=== PATIENT | male | born 1945 | race Caucasian/White ===

== ENCOUNTER → 2016-09-13 | Outpatient (CLI) | payer OTHER ==
[~2016-09-13] MED LIST: ASPIRIN E.C. 8181 MG PO; CELEBREX200 MG PO; CIALIS5 MG PO; EFFEXOR XR150 M1 PO; FLOMAX 0.40.4 MG/CAP PO; MIRAPEX0.5 MG PO; NOVAPLUS DE200 MG/ML IM; PRILOSEC 20MG20 MG PO
== END ==
LOC: RAD 08:19
DX: N20.0 Calculus of kidney (principal); Z00.00 Encounter for general adult medical examination without abnormal findings; N40.0 Benign prostatic hyperplasia without lower urinary tract symptoms; R10.9 Unspecified abdominal pain

== ENCOUNTER → 2016-09-14 | Outpatient (CLI) | payer OTHER | LOC: RAD 09:40 | DX: N20.0 Calculus of kidney (principal) ==

== ENCOUNTER → 2016-09-19 | Day surgery (SDC) | payer OTHER | LOC: MSO 07:20 | DX: Z12.11 Encounter for screening for malignant neoplasm of colon (principal); K62.1 Rectal polyp; K57.30 Diverticulosis of large intestine without perforation or abscess without bleeding; K64.4 Residual hemorrhoidal skin tags; Z86.010 Personal history of colon polyps; Z87.891 Personal history of nicotine dependence; G47.33 Obstructive sleep apnea (adult) (pediatric); K21.9 Gastro-esophageal reflux disease without esophagitis | CPT/HCPCS: 00810; J7120 ==

== ENCOUNTER → 2016-12-25 | Outpatient (CLI) | payer OTHER ==
[2015-06-09 15:25] VITALS: BP 137/85
== END ==
LOC: RAD 08:58
DX: R05 Cough (principal); J45.30 Mild persistent asthma, uncomplicated

== ENCOUNTER → 2017-07-25 | Outpatient (CLI) | payer OTHER, MEDICARE ==
[2015-06-09 15:25] VITALS: BP 137/85
== END ==
LOC: RAD 08:27
DX: M25.512 Pain in left shoulder (principal)

== ENCOUNTER → 2018-03-20 | Outpatient (CLI) | payer OTHER, MEDICARE ==
[2015-06-09 15:25] VITALS: BP 137/85
== END ==
LOC: LAB 07:51
DX: M31.6 Other giant cell arteritis (principal)

== ENCOUNTER → 2018-03-28 | Outpatient (CLI) | payer OTHER ==
[2015-06-09 15:25] VITALS: BP 137/85
== END ==
LOC: RAD 14:53
DX: I65.23 Occlusion and stenosis of bilateral carotid arteries (principal)

== ENCOUNTER → 2018-05-09 | Outpatient (CLI) | payer MEDICARE, BC ==
[2015-06-09 15:25] VITALS: BP 137/85
== END ==
LOC: RAD 12:11
DX: M19.071 Primary osteoarthritis, right ankle and foot (principal); M19.072 Primary osteoarthritis, left ankle and foot; M25.872 Other specified joint disorders, left ankle and foot

== ENCOUNTER → 2018-07-15 | Outpatient (CLI) | payer MEDICARE, BC ==
[2015-06-09 15:25] VITALS: BP 137/85
[2018-07-15 08:51] LABS: EOS # 0.3 (0.04-0.40); HEMOGLOBIN 13.9 g/dL (13.5-18.0); MEAN CELL VOLUME 94 fl (78-100); MEAN CORPUSCULAR HEMOGLOBIN 31 pg (27-31); MEAN CORPUSCULAR HGB CONC 33 g/dL (33-37); MEAN PLATELET VOLUME 8.4 fl (7.4-10.4); MONO # 0.3 (0.20-0.80); NEU # 2.7 (1.40-6.50); PLATELET COUNT 190 K/mm3 (130-400); RED BLOOD COUNT 4.48 M/mm3 (4.20-5.60)
[2018-07-15 09:16] LABS: EOS % 7.1 % (0.0-4.0); LYMPH# 0.6 (1.50-4.00)
[2018-07-15 09:17] LABS: ALBUMIN 4.1 g/dL (3.5-5.0); POTASSIUM 4.1 mmol/L (3.6-5.0); TOTAL BILIRUBIN 0.7 mg/dL (0.2-1.3); TOTAL PROTEIN 6.9 g/dL (6.3-8.2)
[2018-07-15 10:10] LABS: ERYTHROCYTE SEDIMENTATION RATE 8 mm/hr (0-20)
[2018-07-15 23:16] LABS: TESTOSTERONE 173 ng/dL (221-716)
== END ==
LOC: LAB 08:32
PROVIDERS: Internal Medicine
DX: Z12.5 Encounter for screening for malignant neoplasm of prostate (principal); Z12.11 Encounter for screening for malignant neoplasm of colon; I63.9 Cerebral infarction, unspecified; E29.1 Testicular hypofunction; J45.30 Mild persistent asthma, uncomplicated

== ENCOUNTER 2018-10-06 08:20 | Observation (INO) | payer MEDICARE, BC ==
[~2018-10-06] VITALS: Ht 188 cm; Wt 118.9 kg
[2018-10-06 09:18] LABS: HEMATOCRIT 47.9 % (42.0-52.0); HEMOGLOBIN 15.8 g/dL (13.5-18.0); MEAN CELL VOLUME 94 fl (78-100); MEAN CORPUSCULAR HEMOGLOBIN 31 pg (27-31); MEAN CORPUSCULAR HGB CONC 33 g/dL (33-37); MEAN PLATELET VOLUME 8.5 fl (7.4-10.4); PLATELET COUNT 191 K/mm3 (130-400); RED CELL DISTRIBUTION WIDTH 14.1 % (11.5-14.5); WHITE BLOOD COUNT 6.2 K/mm3 (4.8-10.8)
[2018-10-06 09:30] LABS: ALBUMIN 4.2 g/dL (3.5-5.0); CALCIUM 8.6 mg/dL (8.4-10.2); POTASSIUM 4.1 mmol/L (3.6-5.0); TOTAL BILIRUBIN 0.5 mg/dL (0.2-1.3); TOTAL PROTEIN 7.1 g/dL (6.3-8.2)
[2018-10-06 09:34] LABS: BAND 2 % (0-10); LYMPHOCYTE 7 % (20-51); MONOCYTE 10 % (3-10); NEUTROPHILS 81 % (42-75)
[2018-10-06 10:49] VITALS: BP 124/73
[2018-10-06] MEDS ORDERED: FLOMAX0.4 MG PO (11:02)
[2018-10-06] MEDS ORDERED: PREDNISONE10 MG PO (11:06)
[2018-10-06] MEDS ORDERED: SYMBICORT1 AE3 IH (11:07)
[2018-10-06 11:08] VITALS: BP 124/73
[2018-10-06] MEDS ORDERED: RT ALBUTEROL CC18 GM IH (11:08)
[2018-10-06 14:55] VITALS: BP 122/84
[2018-10-06 18:04] VITALS: BP 133/74
[2018-10-06 23:07] VITALS: BP 148/77
[2018-10-07 02:56] VITALS: BP 167/78
[2018-10-07 06:03] VITALS: BP 136/77
[2018-10-07 11:00] VITALS: BP 129/85
[2018-10-07] MEDS ORDERED: DOXYCYCLINE MO100 M3 PO (12:31)
[2018-10-07] MEDS ORDERED: CEFDINIR300 MG PO (12:32)
== END 2018-10-07 13:14 | disposition home or self-care (01) ==
LOC: ED 08:20 → MED/SURG 09:45
PROVIDERS: ADMIT Family Medicine
DX: J45.909 Unspecified asthma, uncomplicated (principal); K21.9 Gastro-esophageal reflux disease without esophagitis; G47.30 Sleep apnea, unspecified; G25.81 Restless legs syndrome; N40.0 Benign prostatic hyperplasia without lower urinary tract symptoms; Z96.652 Presence of left artificial knee joint; Z79.82 Long term (current) use of aspirin
CPT/HCPCS: A4216; G0378; J0696; J1885; J2930; J7050; J7512

== ENCOUNTER 2018-10-13 18:21 | Emergency (ER) | payer MEDICARE, BC ==
[~2018-10-13] VITALS: Ht 188 cm; Wt 113.6 kg
[~2018-10-13 18:21] MED LIST changes: +CEFDINIR300 MG PO; +DOXYCYCLINE MO100 M3 PO; +FLOMAX0.4 MG PO; +PREDNISONE10 MG PO; +RT ALBUTEROL CC18 GM IH; +SYMBICORT1 AE3 IH
[2018-10-13] MEDS ORDERED: LUMIGAN 5 ML5 M1 OP (18:58)
[2018-10-13 19:04] LABS: HEMATOCRIT 46.4 % (42.0-52.0); HEMOGLOBIN 15.2 g/dL (13.5-18.0); MEAN CELL VOLUME 93 fl (78-100); MEAN CORPUSCULAR HEMOGLOBIN 31 pg (27-31); MEAN CORPUSCULAR HGB CONC 33 g/dL (33-37); MEAN PLATELET VOLUME 8.8 fl (7.4-10.4); PLATELET COUNT 257 K/mm3 (130-400); RED BLOOD COUNT 4.98 M/mm3 (4.20-5.60); RED CELL DISTRIBUTION WIDTH 13.6 % (11.5-14.5); WHITE BLOOD COUNT 13.6 K/mm3 (4.8-10.8)
[2018-10-13 19:21] LABS: BAND 4 % (0-10); LYMPHOCYTE 8 % (20-51); MONOCYTE 3 % (3-10); NEUTROPHILS 84 % (42-75)
[2018-10-13 19:28] LABS: TROPONIN-I < 0.03 ng/mL (0.00-0.06)
[2018-10-13 19:33] LABS: D-DIMER 1.09 mg/L FEU (0.15-0.50)
[2018-10-13 23:14] VITALS: BP 123/93
== END 2018-10-13 23:14 | disposition home or self-care (01) ==
LOC: ED 18:21
PROVIDERS: Family Medicine
DX: J90 Pleural effusion, not elsewhere classified (principal); J45.909 Unspecified asthma, uncomplicated; J18.9 Pneumonia, unspecified organism; K21.9 Gastro-esophageal reflux disease without esophagitis; G47.30 Sleep apnea, unspecified; N40.0 Benign prostatic hyperplasia without lower urinary tract symptoms; G25.81 Restless legs syndrome; Z79.51 Long term (current) use of inhaled steroids; Z79.82 Long term (current) use of aspirin
CPT/HCPCS: Q9967

== ENCOUNTER → 2018-10-15 | Outpatient (CLI) | payer MEDICARE, BC ==
[2018-10-13 23:14] VITALS: BP 123/93
[~2018-10-15] MED LIST changes: +LUMIGAN 5 ML5 M1 OP
[2018-10-15 09:26] LABS: HEMATOCRIT 42.3 % (42.0-52.0); HEMOGLOBIN 13.5 g/dL (13.5-18.0); MEAN CELL VOLUME 95 fl (78-100); MEAN CORPUSCULAR HEMOGLOBIN 30 pg (27-31); MEAN CORPUSCULAR HGB CONC 32 g/dL (33-37); MEAN PLATELET VOLUME 8.7 fl (7.4-10.4); PLATELET COUNT 228 K/mm3 (130-400); RED BLOOD COUNT 4.45 M/mm3 (4.20-5.60); RED CELL DISTRIBUTION WIDTH 13.5 % (11.5-14.5)
[2018-10-15 09:32] LABS: ALBUMIN 3.5 g/dL (3.5-5.0); CALCIUM 8.2 mg/dL (8.4-10.2); POTASSIUM 3.9 mmol/L (3.6-5.0); TOTAL BILIRUBIN 0.7 mg/dL (0.2-1.3); TOTAL PROTEIN 6.3 g/dL (6.3-8.2)
[2018-10-15 11:35] LABS: ERYTHROCYTE SEDIMENTATION RATE 38 mm/hr (0-20)
[2018-10-15 11:39] LABS: LYMPHOCYTE 8 % (20-51); MONOCYTE 7 % (3-10); NEUTROPHILS 80 % (42-75)
[2018-10-15 19:47] LABS: C-REACTIVE PROTEIN XXX
[2018-10-16 22:58] LABS: ANA SCREEN with REFLEX Negative (Negative)
== END ==
LOC: LAB 08:49
PROVIDERS: Internal Medicine
DX: J18.9 Pneumonia, unspecified organism (principal); J90 Pleural effusion, not elsewhere classified; J45.30 Mild persistent asthma, uncomplicated; S20.20XA Contusion of thorax, unspecified, initial encounter

== ENCOUNTER → 2018-10-24 | Outpatient (CLI) | payer MEDICARE, BC ==
[2018-10-13 23:14] VITALS: BP 123/93
[2018-10-24 07:38] LABS: HEMATOCRIT 43.9 % (42.0-52.0); HEMOGLOBIN 14.1 g/dL (13.5-18.0); MEAN CELL VOLUME 94 fl (78-100); MEAN CORPUSCULAR HEMOGLOBIN 30 pg (27-31); MEAN CORPUSCULAR HGB CONC 32 g/dL (33-37); MEAN PLATELET VOLUME 7.8 fl (7.4-10.4); PLATELET COUNT 236 K/mm3 (130-400); RED BLOOD COUNT 4.66 M/mm3 (4.20-5.60); RED CELL DISTRIBUTION WIDTH 13.7 % (11.5-14.5); WHITE BLOOD COUNT 5.9 K/mm3 (4.8-10.8)
[2018-10-24 08:54] LABS: LYMPHOCYTE 11 % (20-51); MONOCYTE 8 % (3-10); NEUTROPHILS 72 % (42-75)
== END ==
LOC: LAB 07:27
PROVIDERS: Internal Medicine Pulmonary Disease
DX: J90 Pleural effusion, not elsewhere classified (principal)

== ENCOUNTER → 2018-11-04 | Outpatient (CLI) | payer MEDICARE, BC ==
[2018-10-13 23:14] VITALS: BP 123/93
[2018-11-04 08:32] LABS: HEMATOCRIT 37.4 % (42.0-52.0); HEMOGLOBIN 11.8 g/dL (13.5-18.0); MEAN CELL VOLUME 93 fl (78-100); MEAN CORPUSCULAR HEMOGLOBIN 29 pg (27-31); MEAN CORPUSCULAR HGB CONC 32 g/dL (33-37); MEAN PLATELET VOLUME 8.9 fl (7.4-10.4); PLATELET COUNT 292 K/mm3 (130-400); RED BLOOD COUNT 4.01 M/mm3 (4.20-5.60); WHITE BLOOD COUNT 6.4 K/mm3 (4.8-10.8)
[2018-11-04 09:32] LABS: ALBUMIN 3.4 g/dL (3.5-5.0); CALCIUM 8.4 mg/dL (8.4-10.2); POTASSIUM 4.2 mmol/L (3.6-5.0); TOTAL BILIRUBIN 0.4 mg/dL (0.2-1.3); TOTAL PROTEIN 6.5 g/dL (6.3-8.2)
[2018-11-04 13:16] LABS: BAND 2 % (0-10)
[2018-11-04 13:17] LABS: LYMPHOCYTE 11 % (20-51); MONOCYTE 8 % (3-10); NEUTROPHILS 64 % (42-75)
[2018-11-04 13:18] LABS: ERYTHROCYTE SEDIMENTATION RATE 50 mm/hr (0-20)
== END ==
LOC: LAB 07:17 → RAD 07:17
PROVIDERS: Internal Medicine
DX: J18.9 Pneumonia, unspecified organism (principal); J90 Pleural effusion, not elsewhere classified; J45.30 Mild persistent asthma, uncomplicated

== ENCOUNTER 2018-11-29 08:30 | Outpatient (RCR) | payer MEDICARE, BC | END 2018-11-29 09:00 | LOC: PT 08:30 | DX: J98.4 Other disorders of lung (principal); J96.01 Acute respiratory failure with hypoxia; J18.9 Pneumonia, unspecified organism; J91.8 Pleural effusion in other conditions classified elsewhere ==

== ENCOUNTER → 2018-12-02 | Outpatient (CLI) | payer MEDICARE, BC ==
[2018-12-02 11:58] LABS: EOS # 0.3 (0.04-0.40); HEMATOCRIT 44.8 % (42.0-52.0); HEMOGLOBIN 14.1 g/dL (13.5-18.0); LYMPH# 0.8 (1.50-4.00); MEAN CELL VOLUME 90 fl (78-100); MEAN CORPUSCULAR HEMOGLOBIN 28 pg (27-31); MEAN CORPUSCULAR HGB CONC 32 g/dL (33-37); MEAN PLATELET VOLUME 8.2 fl (7.4-10.4); MONO # 0.6 (0.20-0.80); NEU # 3.4 (1.40-6.50); PLATELET COUNT 252 K/mm3 (130-400); RED BLOOD COUNT 4.99 M/mm3 (4.20-5.60); RED CELL DISTRIBUTION WIDTH 14.9 % (11.5-14.5); WHITE BLOOD COUNT 5.2 K/mm3 (4.8-10.8)
[2018-12-02 12:11] LABS: EOS % 6.4 % (0.0-4.0)
== END ==
LOC: LAB 11:47
PROVIDERS: Internal Medicine Pulmonary Disease
DX: J18.9 Pneumonia, unspecified organism (principal)

== ENCOUNTER → 2019-02-14 | Outpatient (CLI) | payer MEDICARE, BC | LOC: RAD 08:15 | DX: J18.9 Pneumonia, unspecified organism (principal) ==

== ENCOUNTER → 2019-06-09 | Outpatient (CLI) | payer MEDICARE, BC ==
[2019-06-09 11:59] LABS: BASO # 0.1 (0.02-0.10); EOS # 0.3 (0.04-0.40); HEMATOCRIT 46.3 % (42.0-52.0); HEMOGLOBIN 15.4 g/dL (13.5-18.0); LYMPH# 0.9 (1.50-4.00); MEAN CELL VOLUME 94 fl (78-100); MEAN CORPUSCULAR HEMOGLOBIN 31 pg (27-31); MEAN CORPUSCULAR HGB CONC 33 g/dL (33-37); MEAN PLATELET VOLUME 8.4 fl (7.4-10.4); MONO # 0.4 (0.20-0.80); NEU # 2.8 (1.40-6.50); PLATELET COUNT 222 K/mm3 (130-400); RED BLOOD COUNT 4.92 M/mm3 (4.20-5.60); RED CELL DISTRIBUTION WIDTH 13.1 % (11.5-14.5); WHITE BLOOD COUNT 4.5 K/mm3 (4.8-10.8)
[2019-06-09 12:18] LABS: ALBUMIN 4.2 g/dL (3.4-4.8)
[2019-06-09 12:19] LABS: POTASSIUM 4.5 mmol/L (3.5-5.1)
[2019-06-09 12:20] LABS: CALCIUM 9.3 mg/dL (8.3-10.5)
[2019-06-09 12:21] LABS: TOTAL PROTEIN 7.4 g/dL (6.2-8.1)
[2019-06-09 12:23] LABS: TOTAL BILIRUBIN 0.4 mg/dL (0.2-1.2)
[2019-06-09 12:30] LABS: EOS % 6.7 % (0.0-4.0)
[2019-06-09 13:35] LABS: ERYTHROCYTE SEDIMENTATION RATE 4 mm/hr (0-20)
[2019-06-09 23:53] LABS: TESTOSTERONE 238 ng/dL (221-716)
== END ==
LOC: LAB 11:48
PROVIDERS: Internal Medicine
DX: Z12.5 Encounter for screening for malignant neoplasm of prostate (principal); Z12.11 Encounter for screening for malignant neoplasm of colon; J45.30 Mild persistent asthma, uncomplicated; E29.1 Testicular hypofunction; I63.421 Cerebral infarction due to embolism of right anterior cerebral artery; J18.9 Pneumonia, unspecified organism; J90 Pleural effusion, not elsewhere classified; R20.2 Paresthesia of skin

== ENCOUNTER → 2019-08-21 | Outpatient (CLI) | payer MEDICARE, BC ==
[2019-08-21 07:43] LABS: EOS # 0.2 (0.04-0.40); EOS % 2.9 % (0.0-4.0); HEMATOCRIT 43.9 % (42.0-52.0); HEMOGLOBIN 14.5 g/dL (13.5-18.0); LYMPH# 0.7 (1.50-4.00); MEAN CELL VOLUME 94 fl (78-100); MEAN CORPUSCULAR HEMOGLOBIN 31 pg (27-31); MEAN CORPUSCULAR HGB CONC 33 g/dL (33-37); MONO # 0.5 (0.20-0.80); NEU # 3.9 (1.40-6.50); PLATELET COUNT 213 K/mm3 (130-400); RED BLOOD COUNT 4.66 M/mm3 (4.20-5.60); RED CELL DISTRIBUTION WIDTH 13.2 % (11.5-14.5); WHITE BLOOD COUNT 5.3 K/mm3 (4.8-10.8)
[2019-08-21 07:47] LABS: ALBUMIN 4.1 g/dL (3.4-4.8); POTASSIUM 3.9 mmol/L (3.5-5.1)
[2019-08-21 07:48] LABS: CALCIUM 9.1 mg/dL (8.3-10.5)
[2019-08-21 07:51] LABS: TOTAL BILIRUBIN 0.6 mg/dL (0.2-1.2)
== END ==
LOC: LAB 07:27 → RAD 07:27
PROVIDERS: Internal Medicine
DX: J45.30 Mild persistent asthma, uncomplicated (principal)

== ENCOUNTER → 2020-02-17 | Outpatient (CLI) | payer MEDICARE, BC | LOC: RAD 12:03 | DX: M19.071 Primary osteoarthritis, right ankle and foot (principal) ==

== ENCOUNTER → 2020-03-15 | Outpatient (CLI) | payer MEDICARE, BC | LOC: LAB 10:56 | DX: M79.10 Myalgia, unspecified site (principal); R06.02 Shortness of breath; Z20.828 Contact with and (suspected) exposure to other viral communicable diseases ==

== ENCOUNTER → 2020-03-29 | Day surgery (SDC) | payer MEDICARE, BC | LOC: MSO 10:31 | DX: C44.629 Squamous cell carcinoma of skin of left upper limb, including shoulder (principal) ==

== ENCOUNTER → 2020-05-26 | Outpatient (CLI) | payer MEDICARE, BC | LOC: RAD 08:11 | DX: M19.011 Primary osteoarthritis, right shoulder (principal); M19.012 Primary osteoarthritis, left shoulder ==

== ENCOUNTER → 2020-06-23 | Outpatient (CLI) | payer MEDICARE, BC ==
[2020-06-23 08:46] LABS: EOS # 0.2 (0.04-0.40); EOS % 4.1 % (0.0-4.0); HEMATOCRIT 43.4 % (42.0-52.0); MEAN CELL VOLUME 97 fl (78-100); MEAN CORPUSCULAR HEMOGLOBIN 31 pg (27-31); MEAN CORPUSCULAR HGB CONC 32 g/dL (33-37); MEAN PLATELET VOLUME 8.4 fl (7.4-10.4); MONO # 0.4 (0.20-0.80); NEU # 2.9 (1.40-6.50); PLATELET COUNT 207 K/mm3 (130-400); RED BLOOD COUNT 4.48 M/mm3 (4.20-5.60); WHITE BLOOD COUNT 4.2 K/mm3 (4.8-10.8)
[2020-06-23 08:54] LABS: ALBUMIN 4.1 g/dL (3.4-4.8)
[2020-06-23 08:55] LABS: POTASSIUM 4.7 mmol/L (3.5-5.1)
[2020-06-23 08:56] LABS: CALCIUM 8.8 mg/dL (8.3-10.5)
[2020-06-23 08:57] LABS: TOTAL PROTEIN 7.2 g/dL (6.2-8.1)
[2020-06-23 08:59] LABS: TOTAL BILIRUBIN 0.6 mg/dL (0.2-1.2)
[2020-06-23 09:20] LABS: LYMPH# 0.7 (1.50-4.00)
[2020-06-23 09:50] LABS: ERYTHROCYTE SEDIMENTATION RATE 12 mm/hr (0-20)
[2020-06-23 22:41] LABS: TESTOSTERONE 196 ng/dL (221-716)
== END ==
LOC: LAB 08:17
PROVIDERS: Internal Medicine
DX: Z12.5 Encounter for screening for malignant neoplasm of prostate (principal); Z12.11 Encounter for screening for malignant neoplasm of colon; J18.9 Pneumonia, unspecified organism; J90 Pleural effusion, not elsewhere classified; E29.1 Testicular hypofunction; J45.30 Mild persistent asthma, uncomplicated; I63.421 Cerebral infarction due to embolism of right anterior cerebral artery; R20.2 Paresthesia of skin

== ENCOUNTER → 2020-08-23 | Day surgery (SDC) | payer MEDICARE, BC | END | disposition home or self-care (01) | LOC: MSO 08-16 10:26 | DX: C44.629 Squamous cell carcinoma of skin of left upper limb, including shoulder (principal); E53.8 Deficiency of other specified B group vitamins ==

== ENCOUNTER → 2020-08-24 | Outpatient (CLI) | payer MEDICARE, BC | LOC: RAD 15:46 | DX: J45.30 Mild persistent asthma, uncomplicated (principal) ==

== ENCOUNTER → 2021-03-23 | Outpatient (CLI) | payer MEDICARE, BC | LOC: RAD 08:48 | DX: M19.012 Primary osteoarthritis, left shoulder (principal); M19.011 Primary osteoarthritis, right shoulder ==

== ENCOUNTER → 2021-07-07 | Outpatient (CLI) | payer MEDICARE, BC ==
[2021-07-07 08:55] LABS: BASO # 0.04 K/mm3 (0.02-0.10); EOS # 0.27 K/mm3 (0.04-0.40); EOS % 6.6 % (0.0-4.0); HEMATOCRIT 45.3 % (42.0-52.0); HEMOGLOBIN 14.8 g/dL (13.5-18.0); MEAN CELL VOLUME 99 fl (78-100); MEAN CORPUSCULAR HEMOGLOBIN 33 pg (27-31); MEAN CORPUSCULAR HGB CONC 33 g/dL (33-37); MEAN PLATELET VOLUME 8.7 fl (7.4-10.4); MONO # 0.27 K/mm3 (0.20-0.80); NEU # 2.83 K/mm3 (1.40-6.50); PLATELET COUNT 192 K/mm3 (130-400); RED BLOOD COUNT 4.56 M/mm3 (4.20-5.60); RED CELL DISTRIBUTION WIDTH 12.5 % (11.5-14.5); WHITE BLOOD COUNT 4.1 K/mm3 (4.8-10.8)
[2021-07-07 09:00] LABS: ALBUMIN 4.1 g/dL (3.4-4.8); POTASSIUM 4.4 mmol/L (3.5-5.1)
[2021-07-07 09:01] LABS: CALCIUM 8.9 mg/dL (8.3-10.5)
[2021-07-07 09:03] LABS: TOTAL PROTEIN 6.8 g/dL (6.2-8.1)
[2021-07-07 09:05] LABS: TOTAL BILIRUBIN 0.5 mg/dL (0.2-1.2)
[2021-07-07 09:51] LABS: ERYTHROCYTE SEDIMENTATION RATE 1 mm/hr (0-20)
[2021-07-07 23:39] LABS: TESTOSTERONE 183 ng/dL (221-716)
== END ==
LOC: LAB 08:29
PROVIDERS: Internal Medicine
DX: Z12.5 Encounter for screening for malignant neoplasm of prostate (principal); J45.909 Unspecified asthma, uncomplicated; I63.9 Cerebral infarction, unspecified; K90.9 Intestinal malabsorption, unspecified

== ENCOUNTER → 2022-02-23 | Outpatient (CLI) | payer MEDICARE, BC | LOC: RAD 11:21 → AMSURD 11:21 | DX: Z01.810 Encounter for preprocedural cardiovascular examination (principal); M19.012 Primary osteoarthritis, left shoulder ==

== ENCOUNTER → 2022-02-24 | Outpatient (CLI) | payer MEDICARE, BC ==
[2022-02-24 09:30] LABS: BASO # 0.04 K/mm3 (0.02-0.10); EOS # 0.28 K/mm3 (0.04-0.40); EOS % 6.8 % (0.0-4.0); HEMATOCRIT 41.3 % (42.0-52.0); HEMOGLOBIN 13.7 g/dL (13.5-18.0); LYMPH# 0.79 K/mm3 (1.50-4.00); MEAN CELL VOLUME 96 fl (78-100); MEAN CORPUSCULAR HEMOGLOBIN 32 pg (27-31); MEAN CORPUSCULAR HGB CONC 33 g/dL (33-37); MEAN PLATELET VOLUME 8.8 fl (7.4-10.4); MONO # 0.41 K/mm3 (0.20-0.80); PLATELET COUNT 193 K/mm3 (130-400); RED BLOOD COUNT 4.32 M/mm3 (4.20-5.60); RED CELL DISTRIBUTION WIDTH 13.2 % (11.5-14.5); WHITE BLOOD COUNT 4.1 K/mm3 (4.8-10.8)
[2022-02-24 09:34] LABS: POTASSIUM 4.5 mmol/L (3.5-5.1)
[2022-02-24 09:36] LABS: CALCIUM 9.2 mg/dL (8.3-10.5)
[2022-02-24 10:29] LABS: PROTHROMBIN TIME 9.8 SECONDS (9.0-12.0)
[2022-02-24 12:54] LABS: URINE APPEARANCE CLEAR; URINE BILIRUBIN NEGATIVE (NEGATIVE); URINE BLOOD NEGATIVE (NEGATIVE); URINE COLOR YELLOW; URINE GLUCOSE NEGATIVE (NEGATIVE); URINE KETONE NEGATIVE (NEGATIVE); URINE LEUKOCYTE ESTERASE NEGATIVE (NEGATIVE); URINE MUCUS PRESENT (NOT PRESENT); URINE NITRATE NEGATIVE (NEGATIVE); URINE PROTEIN(semi-quant) TRACE (NEGATIVE); URINE UROBILINOGEN NORMAL (NORMAL); URINE WBC 0-1 /hpf (0-3)
== END ==
LOC: LAB 08:17
PROVIDERS: Family Medicine
DX: Z01.812 Encounter for preprocedural laboratory examination (principal); M19.012 Primary osteoarthritis, left shoulder

== ENCOUNTER → 2022-03-08 | Outpatient (CLI) | payer MEDICARE, BC | LOC: PT 09:39 | DX: M19.012 Primary osteoarthritis, left shoulder (principal); M75.112 Incomplete rotator cuff tear or rupture of left shoulder, not specified as traumatic ==

== ENCOUNTER 2022-03-17 09:55 | Outpatient (RCR) | payer MEDICARE, BC | END 2022-03-19 | LOC: PT | DX: M25.512 Pain in left shoulder (principal); Z96.611 Presence of right artificial shoulder joint ==

== ENCOUNTER 2022-03-20 07:54 | Outpatient (RCR) | payer MEDICARE, BC | END 2022-04-19 | disposition home or self-care (01) | LOC: PT | DX: M25.512 Pain in left shoulder (principal); Z96.612 Presence of left artificial shoulder joint ==

== ENCOUNTER → 2022-03-29 | Outpatient (CLI) | payer MEDICARE, BC | LOC: RAD 09:01 | DX: M25.512 Pain in left shoulder (principal); Z96.612 Presence of left artificial shoulder joint ==

== ENCOUNTER 2023-06-26 09:58 | Outpatient (RCR) | payer MEDICARE, BC | END 2023-07-19 11:58 | disposition home or self-care (01) | LOC: OPPGERO 09:58 | DX: F32.1 Major depressive disorder, single episode, moderate (principal); F41.9 Anxiety disorder, unspecified ==

== ENCOUNTER → 2024-11-05 | Outpatient (CLI) | payer MEDICARE, BC ==
[~2024-11-05] MED LIST changes: +ALBUTEROL2.5 MG/3 M IH; +ALPHAGAN P 10 M10 M1 OP; +ATORVASTATIN CA40 MG PO; +BRIMONIDINE TAR10 ML OU; +DOXYCYCLINE HY100 M5 PO; +MEDROL DOSEPAK4 MG PO; +MIRAPEX 0.125MG PO; -MIRAPEX0.5 MG PO; +VITAMIN B12 1541 TAB PO; +ZITHROMAX Z PA250 MG PO; +ZYRTEC10 M3 PO
[2024-11-05 09:53] LABS: ALBUMIN 4.7 g/dL (3.4-4.8)
[2024-11-05 09:54] LABS: CALCIUM 9.7 mg/dL (8.3-10.5)
[2024-11-05 09:55] LABS: TOTAL PROTEIN 7.9 g/dL (6.2-8.1)
== END ==
LOC: LAB 09:19
PROVIDERS: Family Medicine
DX: E78.2 Mixed hyperlipidemia (principal); G25.81 Restless legs syndrome

== ENCOUNTER → 2024-11-07 | Outpatient (CLI) | payer MEDICARE, BC ==
[2024-11-07 12:55] LABS: HEMATOCRIT 43.3 % (42.0-52.0); HEMOGLOBIN 14.7 g/dL (13.5-18.0); MEAN CELL VOLUME 95 fl (78-100); MEAN CORPUSCULAR HEMOGLOBIN 32 pg (27-31); MEAN CORPUSCULAR HGB CONC 34 g/dL (33-37); MEAN PLATELET VOLUME 8.9 fl (7.4-10.4); PLATELET COUNT 127 K/mm3 (130-400); RED BLOOD COUNT 4.58 M/mm3 (4.20-5.60); RED CELL DISTRIBUTION WIDTH 12.7 % (11.5-14.5); WHITE BLOOD COUNT 5.2 K/mm3 (4.8-10.8)
[2024-11-07 14:02] LABS: BAND 13 % (0-10); LYMPHOCYTE 3 % (20-51); MONOCYTE 9 % (3-10); NEUTROPHILS 73 % (42-75)
== END ==
LOC: LAB 11:57
PROVIDERS: Physician Assistant
DX: R06.00 Dyspnea, unspecified (principal)

== ENCOUNTER → 2024-11-20 | Outpatient (CLI) | payer MEDICARE, BC ==
[2024-11-20 15:10] LABS: ALBUMIN 4.2 g/dL (3.4-4.8)
[2024-11-20 15:12] LABS: CALCIUM 9.4 mg/dL (8.3-10.5)
[2024-11-20 15:13] LABS: TOTAL PROTEIN 7.5 g/dL (6.2-8.1)
[2024-11-20 15:15] LABS: TOTAL BILIRUBIN 0.9 mg/dL (0.2-1.2)
== END ==
LOC: LAB 14:51
PROVIDERS: Family Medicine
DX: R74.01 Elevation of levels of liver transaminase levels (principal)